=== PATIENT | male | born 2000 | race African-American/Black ===

== ENCOUNTER 2020-12-03 14:02 | Emergency (ER) | payer MEDICAID ==
[~2020-12-03] VITALS: Ht 188 cm; Wt 84.0 kg
[2020-12-03 14:07] VITALS: BP 110/48
[2020-12-03] MEDS ORDERED: IBUPROFEN 800MG TABLET PO ONE (14:30)
[2020-12-03] MEDS ORDERED: ACETAMINOPHEN WITH CODEINE 300/30MG TABLET PO ONE (14:30)
[2020-12-03] MEDS ORDERED: TETANUS, DIPHTHERIA, PERTUSSIS VAC/PF 0.5ML (>10YR OLD) IM ONE (14:30)
[2020-12-03] MEDS ORDERED: BACITRACIN 15GM TUBE TOP ONE (14:30)
[2020-12-03] MEDS ORDERED: BACITRACIN ZINC OINT UDPKT TOP SCH (15:00)
[2020-12-03] MEDS ORDERED: BO1 TP (16:25)
[2020-12-03] MEDS ORDERED: T3 PO (16:25)
[2020-12-03] MEDS ORDERED: IBUP-2030 MT (16:25)
[2020-12-03] MEDS ORDERED: BACITRACIN 15GM TUBE TOP SCH (16:45)
[2020-12-03] MEDS ORDERED: LIDOCAINE HCL/PF 1% 10 MG/ML 5ML VIAL INFIL ONE (17:00)
== END 2020-12-03 18:05 | disposition home or self-care (01) ==
LOC: ER 14:02
DX: S50.02XA Contusion of left elbow, initial encounter (principal); J45.909 Unspecified asthma, uncomplicated; W18.30XA Fall on same level, unspecified, initial encounter; Y93.89 Activity, other specified; Y92.89 Other specified places as the place of occurrence of the external cause; Y99.8 Other external cause status
CPT/HCPCS: 12001; 73080; 73552; 73562; 73590; 90471; 90715; 99284; J3490; Z7610

== ENCOUNTER 2020-12-07 13:49 | Emergency (ER) | payer MEDICAID ==
[~2020-12-07] VITALS: Ht 188 cm; Wt 86.0 kg
[~2020-12-07 13:49] MED LIST: BO1 TP; IBUP-2030 MT; T3 PO
[2020-12-07 13:52] VITALS: BP 117/53
== END 2020-12-07 19:30 | disposition left against medical advice (07) ==
LOC: ER 13:49
DX: Z53.21 Procedure and treatment not carried out due to patient leaving prior to being seen by health care provider (principal)